=== PATIENT | female | born 1945 | race Caucasian/White ===

== ENCOUNTER → 2020-05-16 | Outpatient (CLI) | payer MEDICARE ==
[2020-05-16 14:05] VITALS: BP 161/71; PULSE 71; RESP 18; TEMP 98.4; BMI 29.5
--- NOTE | 2020-05-16 15:39 | P.HPBAR ---
Bariatric H&P - History & Physicial H&P Date: 05/16/20 History & Physicial: Visit/CC: initial visit Patient initial contact: Initial weight: Initial weight in pounds: Height: 5 ft 6 in Initial BMI: Last weight: Current weight: 83.007 kg Current weight in pounds: 183.00 Current BMI: 29.5 [place] body weight (based on NIH guidelines): 58.967 kg Excess body weight loss: The patient is a 74 year-old F who presents for Bariatric Assessment. Patient presents today for laparoscopic adjustable. She is currently complaints of dysphagia and GERD. Past Medical History Past Medical History: Atrial Fibrillation, Diabetes Mellitus, Hypertension, Thyroid Disorder Additional Past Medical History / Comment(s): afib during the PANNI surgery History of Any Multi-Drug Resistant Organisms: None Reported Past Surgical History: Appendectomy, Cholecystectomy, Hysterectomy, Joint Replacement, Tubal Ligation Additional Past Surgical History / Comment(s): thyroid removed; hip replacement; hernia repair and panniculectomy 2014; fatty tumor removed right shoulder Past Anesthesia/Blood Transfusion Reactions: No Reported Reaction Smoking Status: Never smoker Surgical - Exam Vital Signs Temp Pulse Resp BP 98.4 F 71 18 161/71 05/16/20 13:29 05/16/20 13:29 05/16/20 13:29 05/16/20 13:29 - General well developed, well nourished, no distress - Eyes PERRL - ENT normal pinna - Neck no masses - Respiratory normal expansion - Cardiovascular Rhythm: regular - Abdomen Abdomen: soft, non tender Bariatric Assessment & Plan Plan: Patient's lap band is empty. 1. cc removed from her band. She currently is 0 mL . She'll undergo esophagram today. Bariatric Checklist Checklist: Plan: Checklist: EGD: 1. Hiatal hernia: 2. H. Pylori: HgbA1c: Vitamin D: Smoking: Primary care physician referral: Dr. Reece Psychiatry clearance: Cardiology clearance: Sleep study: Diet journal: VTE risk score: VTE risk level: Rehab needs at discharge:
--- NOTE | 2020-05-16 17:05 | FL ---
SINGLE CONTRAST BARIUM SWALLOW: CLINICAL HISTORY: 74-year-old female with lap band placed in 2003. Patient developed reflux of liqui d and solid ingestions one month ago. Lap-band emptied in clinic today. TECHNIQUE: Esophagram was performed utilizing thin barium. Total fluoroscopy time: 2 minutes 5 seconds Total images: 30. FINDINGS: Initial insurance inspector image shows lap band and a somewhat horizontal position though the appearance is unchan ged from 12/04/2010. The patient ingested oral contrast without difficulty or delay. The esophagus is noted to be mildly d istended and there is mottled debris within suggesting retained solid content. There is mild narrowin g and relative mild obstruction to the passage of contrast across the lap band. 2 small swallows in a row results in esophageal accumulation of contrast to the mid thoracic level. Mild tertiary peristal sis and mild intraesophageal reflux is demonstrated. There is gradual progression across the lap band. IMPRESSION: 1. No evidence for lap band prolapse. 2. Mild relative narrowing across the lap band resulting in contrast accumulating to the mid chest le maria isabel after 2 small swallows. Contrast crosses the lap-band gradually. 3. Resultant episodes of intraesophageal reflux. We note that the esophagus is mildly dilated and kristyn e mottled debris is present suggesting the presence of some retained solid material in the esophagus.
== END | disposition home or self-care (01) ==
LOC: BARWHC3 12:30
PROVIDERS: ATTEND Surgery
DX: Z46.51 Encounter for fitting and adjustment of gastric lap band (principal); Z90.710 Acquired absence of both cervix and uterus; Z90.49 Acquired absence of other specified parts of digestive tract
CPT/HCPCS: 74220; G0463; 99202